=== PATIENT | female | born 1955 | race American Indian/Alaskan Native ===

== ENCOUNTER 2020-04-17 13:28 | Outpatient (CLI) | payer MEDICARE ==
--- NOTE | 2020-04-17 15:45 | Magnetic Resonance Report ---
BILATERAL BREAST MRI WITH AND WITHOUT CONTRAST HISTORY: Screening breast MRI, patient at high risk for breast malignancy based upon family history o f breast cancer and ovarian cancer. COMPARISON: Mammogram 03/30/2020. TECHNIQUE: Multiplanar multisequence MR images of the breast were acquired before and after the intra venous administration of contrast agent. Post processing analysis was performed and reviewed on a [employer] computerized workstation. FINDINGS: The breast parenchymal pattern is scattered fibroglandular. There is moderate background parenchymal enhancement which slightly decreases the sensitivity of MRI. There is no enhancing mass, dominant focus, or other abnormal enhancement identified within either br east. No abnormal axillary or internal mammary lymph nodes. Mild cardiomegaly is incidentally noted. IMPRESSION: No MRI evidence of malignancy. If the clinical examination remains stable, the patient should continu e an annual conventional mammographic evaluation schedule. Recommend [facility] appropriate for her risk factors. BIRADS 1: Negative. A normal MRI does not exclude the presence of some forms of breast malignancy as literature reports s uggest that some forms of ductal carcinoma in situ or lobular carcinoma, particularly, may not be det ected on MRI. The sensitivity and specificity of MRI for cancers under 5 mm may be reduced. MRI does not replace the recommendation for annual conventional mammographic evaluation and should be used as an adjunct to mammography and physical examination as necessary. Signer Name: Dipesh Kumar MD Signed: 04/17/2020 3:40 PM Workstation Name: [id number]
== END 2020-04-17 13:29 | disposition home or self-care (01) ==
LOC: SPVIMAG 13:28
PROVIDERS: ATTEND Surgery
DX: Z12.31 Encounter for screening mammogram for malignant neoplasm of breast (principal); I51.7 Cardiomegaly; Z80.3 Family history of malignant neoplasm of breast
CPT/HCPCS: A9577; C8908; 77049

== ENCOUNTER 2021-05-03 10:28 | Outpatient (CLI) | payer MEDICARE ==
--- NOTE | 2021-05-03 19:14 | Mammography Report ---
DIGITAL SCREENING MAMMOGRAM WITH CAD, 05/03/2021 CLINICAL INFORMATION / INDICATION: Routine screening mammography. SCREENING MAMMO TECHNIQUE: Digital bilateral 2D mammography was obtained in the craniocaudal and mediolateral obliqu e projections. This examination was interpreted with the benefit of Computer-Aided Detection analysis . COMPARISON: 03/30/2020, 05/12/2013, 04/26/2010 FINDINGS: Breast Density: There are scattered areas of fibroglandular density. No dominant mass, suspicious calcifications, or architectural distortion in either breast. IMPRESSION: No mammographic evidence of malignancy. Follow up recommendation: Routine yearly BI-RADS Category 1: Negative. A "normal" or negative report should not discourage follow up or biopsy of a clinically significant f inding. A written summary of these findings will be mailed to the patient. The patient will be entered into a mammography reporting system which will generate a reminder letter for the patient's next appointmen t at the appropriate interval. The [employer] recommends yearly mammograms starting at age 40 and continuing as l mary kay as a woman is in good health. Breast MRI is recommended for women with an approximate 20-25% or greater lifetime risk of breast cancer, including women with a strong family history of breast or ova gianna cancer or who have been treated for Hodgkin's disease. Signer Name: Shane Cuellar MD Signed: 05/03/2021 7:09 PM Workstation Name: [id number]
== END 2021-05-03 10:29 | disposition home or self-care (01) ==
LOC: SPVWC 10:28
PROVIDERS: ATTEND Surgery
DX: Z12.31 Encounter for screening mammogram for malignant neoplasm of breast (principal)
CPT/HCPCS: 77067